=== PATIENT | male | born 1965 | race Caucasian/White ===

== ENCOUNTER 2018-06-15 10:18 | Emergency (ER) | payer SELFPAY ==
--- NOTE | 2018-06-15 11:22 | RAD REPORT ---
EXAM DESCRIPTION: CT - Stone Protocol - 06/15/2018 11:00 am CLINICAL HISTORY: Abdominal pain. Upper abdominal pain COMPARISON: None. TECHNIQUE: Computed axial tomography of the abdomen pelvis was obtained without oral or IV contrast. Lack of IV and oral contrast limits evaluation of solid organs, bowel, and vessels. Coronal reformat yvonne images were obtained and reviewed. All CT scans are performed using dose optimization technique as appropriate and may include automated exposure control or mA/KV adjustment according to patient size. FINDINGS: A renal calculus is not seen. An ureteral calculus is not noted. A bladder calculus is not present. 1 centimeter low-density area within the left kidney is nonspecific without IV contrast but probably represents a cyst. The liver, spleen, pancreas and adrenals appear grossly normal There is no evidence of diverticulitis. The appendix appears normal Small umbilical hernia. 6.5 centimeter lipoma is present within the left lateral abdominal wall. Small bilateral inguinal hernias contain fat Spondylolysis involves L5. L5-L1 disc is narrowed. Subchondral sclerosis involves the adjacent verteb ral endplates. IMPRESSION: Negative for a genitourinary calculus Disc space narrowing involving L5-S1 with subchondral sclerosis involving the vertebral endplates. Mo st likely this is all degenerative in nature. Inflammation/infection can also have this appearance. T his should be correlated clinically and with appropriate lab values.
[2018-06-15 11:27] LABS: Absolute Lymphocytes (CBC) 2.1 K/uL (0.7-4.9); Absolute Monocytes 0.7 K/uL (0.1-1.3); Basophils % 0.5 % (0-1.3); Eosinophils % 4.8 % (0-4.4); Hematocrit 41.7 % (39.6-49.0); Lymphocytes % 34.3 % (15.3-44.8); MCH 29.2 pg (27.0-35.0); MCV 85.3 fL (80-100); MPV 7.7 fL (7.6-11.3); RBC Red Blood Cell Count 4.89 M/uL (4.33-5.43)
[2018-06-15 11:43] LABS: Albumin 3.7 g/dL (3.4-5.0); Bilirubin Direct 0.2 mg/dL (0-0.2); Bilirubin Total 0.6 mg/dL (0.2-1.0); Protein, Total 7.6 g/dL (6.4-8.2)
[2018-06-15] MEDS ORDERED: NA CHLORIDE 0.9% 500 ML ONE (12:05)
[2018-06-15 12:19] LABS: Urine Blood 1+ (NEG); Urine Glucose NEGATIVE (NEG); Urine Protein NEGATIVE (NEG); Urine Specific Gravity >1.030 (1.005-1.030)
--- NOTE | 2018-06-15 12:42 | EDPHYS ---
Physician Documentation [facility] Name: Ed Staley II Age: 53 yrs Sex: Male : 1965 Arrival Date: 06/15/2018 Time: 10:21 Bed 25 Private MD: DEEJAY MOTA ED Physician Reece Yancey HPI: 06/15 10:40 This 53 yrs old Male presents to ER via Ambulatory with complaints of Urinary pam Problem. 10:40 The patient presents with abdominal pain in the upper abdomen, in the lower abdomen. pam Onset: The symptoms/episode began/occurred 1 day(s) ago. 10:40 The patient presents with urinary symptoms, hesitancy to initiate urine stream, unable pam to void. Onset: The symptoms/episode began/occurred 1 day(s) ago. Modifying factors: The symptoms are alleviated by nothing, the symptoms are aggravated by nothing. Associated signs and symptoms: The patient has no apparent associated signs or symptoms. The symptoms do not radiate. Historical: - Allergies: 10:30 Codeine; ph - Immunization history:: Adult Immunizations up to date. - Family history:: not pertinent. - Ebola Screening: : No symptoms or risks identified at this time. ROS: 10:40 Constitutional: Negative for fever, chills, and weight loss, Eyes: Negative for injury, pam pain, redness, and discharge, ENT: Negative for injury, pain, and discharge, Neck: Negative for injury, pain, and swelling, Cardiovascular: Negative for chest pain, palpitations, and edema, Respiratory: Negative for shortness of breath, cough, wheezing, and pleuritic chest pain, Back: Negative for injury and pain, MS/Extremity: Negative for injury and deformity, Skin: Negative for injury, rash, and discoloration, Neuro: Negative for headache, weakness, numbness, tingling, and seizure, Psych: Negative for depression, anxiety, suicide ideation, homicidal ideation, and hallucinations, Allergy/Immunology: Negative for hives, rash, and allergies, Endocrine: Negative for neck swelling, polydipsia, polyuria, polyphagia, and marked weight changes, Hematologic/Lymphatic: Negative for swollen nodes, abnormal bleeding, and unusual bruising. 10:40 Abdomen/GI: Positive for abdominal pain, of the right upper quadrant, left upper quadrant, right lower quadrant and left lower quadrant. 10:40 : Positive for urinary symptoms. Exam: 10:40 Constitutional: This is a well developed, well nourished patient who is awake, alert, pam and in no acute distress. Head/Face: Normocephalic, atraumatic. Eyes: Pupils equal round and reactive to light, extra-ocular motions intact. Lids and lashes normal. Conjunctiva and sclera are non-icteric and not injected. Cornea within normal limits. Periorbital areas with no swelling, redness, or edema. ENT: Nares patent. No nasal discharge, no septal abnormalities noted. Tympanic membranes are normal and external auditory canals are clear. Oropharynx with no redness, swelling, or masses, exudates, or evidence of obstruction, uvula midline. Mucous membranes moist. Neck: Trachea midline, no thyromegaly or masses palpated, and no cervical lymphadenopathy. Supple, full range of motion without nuchal rigidity, or vertebral point tenderness. No Meningismus. Chest/axilla: Normal chest wall appearance and motion. Nontender with no deformity. No lesions are appreciated. Cardiovascular: Regular rate and rhythm with a normal S1 and S2. No gallops, murmurs, or rubs. Normal PMI, no JVD. No pulse deficits. Respiratory: Lungs have equal breath sounds bilaterally, clear to auscultation and percussion. No rales, rhonchi or wheezes noted. No increased work of breathing, no retractions or nasal flaring. Abdomen/GI: Soft, non-tender, with normal bowel sounds. No distension or tympany. No guarding or rebound. No evidence of tenderness throughout. Back: No spinal tenderness. No costovertebral tenderness. Full range of motion. Skin: Warm, dry with normal turgor. Normal color with no rashes, no lesions, and no evidence of cellulitis. MS/ Extremity: Pulses equal, no cyanosis. Neurovascular intact. Full, normal range of motion. Neuro: Awake and alert, GCS 15, oriented to person, place, time, and situation. Cranial nerves II-XII grossly intact. Motor strength 5/5 in all extremities. Sensory grossly intact. Cerebellar exam normal. Normal gait. Psych: Awake, alert, with orientation to person, place and time. Behavior, mood, and affect are within normal limits. 10:40 : Male external genitalia: normal, Bladder: is normal. Vital Signs: 10:29 BP 134 / 77; Pulse 80; Resp 18; Temp 98.0; Pulse Ox 100% on R/A; Weight 112.49 kg; ph Height 6 ft. 0 in. (182.88 cm); Pain 08/12; 12:03 BP 112 / 72; Pulse 51; Resp 18; Pulse Ox 100% on R/A; aj1 13:12 BP 118 / 85; Pulse 62; Resp 18; Pulse Ox 97% on R/A; aj1 14:03 BP 112 / 81; Pulse 52; Resp 18; Pulse Ox 99% on R/A; aj1 10:29 Body Mass Index 33.63 (112.49 kg, 182.88 cm) ph MDM: 10:25 Patient medically screened. [facility] 10:42 Data reviewed: vital signs, nurses notes, lab test result(s), radiologic studies, CT pam scan. 06/15 10:39 Order name: Basic Metabolic Panel; Complete Time: 12:14 [facility] 06/15 10:39 Order name: CBC with Diff; Complete Time: 12:14 [facility] 06/15 10:39 Order name: Creatinine for Radiology; Complete Time: 12:35 [facility] 06/15 10:39 Order name: Hepatic Function; Complete Time: 12:14 [facility] 06/15 10:39 Order name: Lipase; Complete Time: 12:14 [facility] 06/15 10:39 Order name: Urine Culture [facility] 06/15 10:39 Order name: IV Saline Lock; Complete Time: 11:25 [facility] 06/15 10:39 Order name: Labs collected and sent; Complete Time: 11:25 [facility] 06/15 10:39 Order name: Urine Dipstick-Ancillary (obtain specimen); Complete Time: 11:22 [facility] 06/15 10:39 Order name: CT Stone Protocol; Complete Time: 12:14 [facility] 06/15 11:39 Order name: Urine Dipstick--Ancillary (enter results); Complete Time: 12:35 06/15 10:39 Order name: Bladder Scanner: pvr; Complete Time: 11:21 [facility] Administered Medications: 12:01 Drug: NS 0.9% 500 ml Route: IV; Rate: bolus; Site: left antecubital; aj1 14:04 Follow up: IV Status: Completed infusion; IV Intake: 500ml aj 13:04 Drug: Flomax 0.4 mg Route: PO; aj1 14:05 Follow up: Response: No adverse reaction aj1 13:11 Drug: Rocephin - (cefTRIAXone) 1 grams Route: IVPB; Infused Over: 30 mins; Site: left aj1 antecubital; 14:05 Follow up: Response: No adverse reaction; IV Status: Completed infusion aj1 Disposition: 06/15/18 12:41 Discharged to Home. Impression: Dysuria. - Condition is Stable. - Discharge Instructions: Dysuria. - Prescriptions for Flomax 0.4 mg Oral Capsule, Sust. Release 24 hr - take 1 capsule by ORAL route once daily 1/2 hour following the same meal each day; 30 capsule. Cipro 500 mg Oral Tablet - take 1 tablet by ORAL route every 12 hours for 7 days; 14 tablet. - Medication Reconciliation Form, Thank You Letter, Antibiotic Education, Prescription Opioid Use form. - Follow up: DEEJAY MOTA; When: 2 - 3 days; Reason: Recheck today's complaints, Continuance of care, Re-evaluation by your physician. Follow up: Nael Hunter MD; When: 2 - 3 days; Reason: Recheck today's complaints, Re-evaluation by your physician. - Problem is new. - Symptoms have improved. Signatures: Dispatcher [employer] EDSavannah Villareal RN RN aj1 Reece Yancey MD MD cha Hall, Patricia, RN RN ph Corrections: (The following items were deleted from the chart) 14:05 12:41 06/15/2018 12:41 Discharged to Home. Impression: Dysuria. Condition is Stable. aj1 Forms are Medication Reconciliation Form, Thank You Letter, Antibiotic Education, Prescription Opioid Use. Follow up: DEEJAY MOTA; When: 2 - 3 days; Reason: Recheck today's complaints, Continuance of care, Re-evaluation by your physician. Follow up: Nael Hunter; When: 2 - 3 days; Reason: Recheck today's complaints, Re-evaluation by your physician. Problem is new. Symptoms have improved. pam
--- NOTE | 2018-06-15 12:42 | ER ---
Nurse's Notes [facility] Name: Ed Staley II Age: 53 yrs Sex: Male : 1965 Arrival Date: 06/15/2018 Time: 10:21 Bed 25 Private MD: DEEJAY MOTA Diagnosis: Dysuria Presentation: 06/15 10:28 Presenting complaint: Patient states: Decreased urination since yesterday and ph discomfort in lower back, denies fever N/V?D. Transition of care: patient was not received from another setting of care. Onset of symptoms was June 15, 2018. Risk Assessment: Do you want to hurt yourself or someone else? Patient reports no desire to harm self or others. Initial Sepsis Screen: Does the patient meet any 2 criteria? No. Patient's initial sepsis screen is negative. Does the patient have a suspected source of infection? No. Patient's initial sepsis screen is negative. Care prior to arrival: None. 10:28 Method Of Arrival: Ambulatory ph 10:28 Acuity: STANISLAV 3 ph Historical: - Allergies: 10:30 Codeine; ph - Immunization history:: Adult Immunizations up to date. - Family history:: not pertinent. - Ebola Screening: : No symptoms or risks identified at this time. Screenin:35 Abuse screen: Denies threats or abuse. Denies injuries from another. Nutritional aj1 screening: No deficits noted. Tuberculosis screening: No symptoms or risk factors identified. 14:04 Fall Risk None identified. aj1 Assessment: 10:35 General: Appears in no apparent distress. comfortable, Behavior is calm, cooperative, aj1 appropriate for age. 10:35 Pain: Denies pain. Neuro: Level of Consciousness is awake, alert, obeys commands. aj1 Cardiovascular: Patient's skin is warm and dry. Respiratory: Airway is patent Respiratory effort is even, unlabored, Respiratory pattern is regular, symmetrical. GI: No signs and/or symptoms were reported involving the gastrointestinal system. : Reports that he has not been urinating as much as he usually does over the past 2-3 days. EENT: No signs and/or symptoms were reported regarding the EENT system. Derm: No signs and/or symptoms reported regarding the dermatologic system. Skin is pink, warm \T\ dry. normal. Musculoskeletal: No signs and/or symptoms reported regarding the musculoskeletal system. Circulation, motion, and sensation intact. 10:40 Reassessment: Patient voided 30cc of clear yellow urine, bladder scan performed and aj1 shows 31cc of fluid remaining in the bladder. 11:26 Reassessment: Patient appears in no apparent distress at this time. No changes from aj1 previously documented assessment. Patient and/or family updated on plan of care and expected duration. Pain level reassessed. Patient is alert, oriented x 3, equal unlabored respirations, skin warm/dry/pink. 12:03 Reassessment: Patient appears in no apparent distress at this time. No changes from aj1 previously documented assessment. Patient and/or family updated on plan of care and expected duration. Pain level reassessed. Patient is alert, oriented x 3, equal unlabored respirations, skin warm/dry/pink. Patient given warm blanket for comfort. 13:12 Reassessment: Patient appears in no apparent distress at this time. No changes from aj1 previously documented assessment. Patient and/or family updated on plan of care and expected duration. Pain level reassessed. Patient is alert, oriented x 3, equal unlabored respirations, skin warm/dry/pink. 14:03 Reassessment: Patient appears in no apparent distress at this time. No changes from aj1 previously documented assessment. Patient and/or family updated on plan of care and expected duration. Pain level reassessed. Patient is alert, oriented x 3, equal unlabored respirations, skin warm/dry/pink. Vital Signs: 10:29 BP 134 / 77; Pulse 80; Resp 18; Temp 98.0; Pulse Ox 100% on R/A; Weight 112.49 kg; ph Height 6 ft. 0 in. (182.88 cm); Pain 08/12; 12:03 BP 112 / 72; Pulse 51; Resp 18; Pulse Ox 100% on R/A; aj1 13:12 BP 118 / 85; Pulse 62; Resp 18; Pulse Ox 97% on R/A; aj1 14:03 BP 112 / 81; Pulse 52; Resp 18; Pulse Ox 99% on R/A; aj1 10:29 Body Mass Index 33.63 (112.49 kg, 182.88 cm) ph ED Course: 10:21 Patient arrived in ED. sb2 10:21 DEEJAY MOTA is Private Physician. sb2 10:25 Reece Yancey MD is Attending Physician. pam 10:29 Triage completed. ph 10:30 Arm band placed on Patient placed in an exam room. ph 10:35 No provider procedures requiring assistance completed. aj1 11:00 Pulse ox on. NIBP on. jp3 11:01 CT Stone Protocol In Process Unspecified. EDWI 11:15 Initial lab(s) drawn, by me, sent to lab. Inserted saline lock: 20 gauge in left 3 antecubital area, using aseptic technique. Blood collected. 11:19 Bed in low position. Call light in reach. Side rails up X 1. jp3 11:21 Savannah Gonzalez, RN is Primary Nurse. aj1 11:25 Lipase Sent. jp3 11:25 Hepatic Function Sent. jp3 11:25 Creatinine for Radiology Sent. jp3 11:25 CBC with Diff Sent. jp3 11:26 Basic Metabolic Panel Sent. jp3 12:39 DEEJAY MOTA is Referral Physician. [facility] 12:39 Nael Hunter MD is Referral Physician. pam 14:03 IV discontinued, intact, bleeding controlled, No redness/swelling at site. Pressure aj1 dressing applied. Administered Medications: 12:01 Drug: NS 0.9% 500 ml Route: IV; Rate: bolus; Site: left antecubital; aj1 14:04 Follow up: IV Status: Completed infusion; IV Intake: 500ml aj1 13:04 Drug: Flomax 0.4 mg Route: PO; aj1 14:05 Follow up: Response: No adverse reaction aj1 13:11 Drug: Rocephin - (cefTRIAXone) 1 grams Route: IVPB; Infused Over: 30 mins; Site: left aj1 antecubital; 14:05 Follow up: Response: No adverse reaction; IV Status: Completed infusion aj1 Intake: 14:04 IV: 500ml; Total: 500ml. aj1 Outcome: 12:41 Discharge ordered by . pam 14:04 Discharged to home ambulatory. aj1 14:04 Condition: good 14:04 Discharge instructions given to patient, Instructed on discharge instructions, follow up and referral plans. medication usage, Demonstrated understanding of instructions, follow-up care, medications, Prescriptions given X 2. 14:05 Patient left the ED. aj1 Signatures: Dispatcher [employer] [facility] Savannah Gonzalez, RN RN aj1 Reece Yancey MD MD cha Hall, Patricia RN RN ph Inna Spear sb2 Gibson Turner jp3
[2018-06-15] MEDS ORDERED: TAMSULOSIN 0.4 MG SR CAP ONE (13:01)
[2018-06-15] MEDS ORDERED: CEFTRIAXONE/SWI 1gm 1 GM/10 ML SYR ONE (13:02)
== END 2018-06-15 14:05 | disposition home or self-care (01) ==
LOC: ER 10:18
DX: R30.0 Dysuria (principal); Z88.5 Allergy status to narcotic agent
CPT/HCPCS: 36415; 74176; 76377; 80048; 80076; 81003; 83690; 85025; 87086; 87088; 96361; 96365; 99284; J0696

== ENCOUNTER 2025-06-02 15:14 | Emergency (ER) | payer OTHER, SELFPAY ==
[2025-06-02] MEDS ORDERED: IPRATROPIUM BROM 0.5MG/2.5ML ONE ×2 (15:28→16:53)
[2025-06-02] MEDS ORDERED: ALBUTEROL 2.5 MG/3 ML NEB SOL ONE ×2 (15:28→16:53)
[2025-06-02 15:37] LABS: Absolute Lymphocytes (CBC) 1.0 K/uL (0.7-4.9); Hematocrit 46.0 % (39.6-49.0); Hemoglobin 15.4 g/dL (13.6-17.9); MCH 28.7 pg (27.0-35.0); MCHC 33.5 g/dL (32.0-36.0); MCV 85.5 fL (80-100); MPV 7.4 fL (7.6-11.3); Nucleated RBC Absolute Count 0.0 (0-0); Nucleated Red Blood Cells % 0.0 % (0-0); RBC Red Blood Cell Count 5.38 M/uL (4.33-5.43); White Blood Count 11.30 thou/uL (4.3-10.9)
[2025-06-02 15:43] LABS: PT Prothrombin Time 12.1 SECONDS (10-13.0); Protime INR 1.07
[2025-06-02 15:56] LABS: Anion Gap 9.1 mEq/L (5.0-15.0); BUN Blood Urea Nitrogen 13.0 mg/dL (7-18); Glucose Level 108.0 mg/dL (74-106); NT PRO-BNP 109.0 pg/mL (<125); Potassium 4.1 mEq/L (3.5-5.1); Troponin High Sensitivity 30.5 pg/mL (<58.9)
--- NOTE | 2025-06-02 16:57 | RAD REPORT ---
EXAMINATION: ONE VIEW CHEST XR CLINICAL INDICATION: Male, 59 years old.,SOB TECHNIQUE: Frontal chest projection is submitted. Examination is limited by patient positioning and t echnique. COMPARISON: No prior exam. FINDINGS: The lungs are well inflated and clear. No pneumothorax or sizable effusion. The heart is normal in s ize. Mediastinal contours are unremarkable. IMPRESSION: No acute intrathoracic abnormalities.
--- NOTE | 2025-06-02 17:01 | ER ---
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 PT REPORTS THIS HAPPENED IN THE PAST. DENIES FEVER OR COUGH. Coronavirus screen: difficulty breathing, shortness of breath. Ebola Screen: No symptoms or risks identified at this time. Initial Sepsis Screen: Does the patient meet any 2 criteria? No. Patient's initial sepsis screen is negative. Does the patient have a suspected source of infection? No. Patient's initial sepsis screen is negative. Risk Assessment: Do you want to hurt yourself or someone else? Patient reports no desire to harm self or others. Onset of symptoms was June 02, 2025. 15:28 Method Of Arrival: Wheelchair dd2 15:28 Acuity: STANISLAV 2 dd2 Triage Assessment: 15:28 General: Appears distressed, Behavior is cooperative, appropriate for age, anxious. dd2 Pain: Denies pain. Respiratory: Reports shortness of breath at rest on exertion labored breathing Airway is patent Respiratory effort is labored, with retractions, using tripod position, Respiratory pattern is regular, symmetrical, tachypnea Onset: The symptoms/episode began/occurred today. Historical: - Allergies: 15:29 Codeine; ll1 - PMHx: 15:29 Asthma; pituatory adenoma; ll1 - PSHx: 15:29 brain surgery; ll1 - Immunization history:: Adult Immunizations up to date. - Infectious Disease History:: Denies. - Social history:: Smoking status: unknown. Screenin:56 [facility] ED Fall Risk Assessment (Adult) History of falling in the last 3 months, kb4 including since admission No falls in past 3 months (0 pts) Confusion or Disorientation No (0 pts) Intoxicated or Sedated No (0 pts) Impaired Gait No (0 pts) Mobility Assist Device Used No (0 pt) Altered Elimination No (0 pt) Score/Fall Risk Level 0 - 2 = Low Risk. Abuse screen: Denies threats or abuse. Denies injuries from another. Nutritional screening: No deficits noted. Tuberculosis screening: No symptoms or risk factors identified. Assessment: 15:35 Respiratory: Airway is patent Respiratory effort is even, labored, using tripod kb4 position, Respiratory pattern is tachypnea. 15:53 Reassessment: pt refused EKG pt stated "i do not want to pay for that". General: kb4 Appears in no apparent distress. uncomfortable, Behavior is calm, cooperative. Neuro: Level of Consciousness is awake, alert, obeys commands, Oriented to person, place, time, situation. Cardiovascular: Patient's skin is warm and dry. Respiratory: Airway is patent Respiratory effort is even, unlabored, Respiratory pattern is regular, symmetrical. Derm: Skin is pink, warm \\T\\ dry. 16:55 Reassessment: Patient and/or family updated on plan of care and expected duration. Pain kb4 level reassessed. Patient is alert, oriented x 3, equal unlabored respirations, skin warm/dry/pink. Patient states symptoms have improved. 17:12 Reassessment: Patient states feeling better. Patient states symptoms have improved. kb4 Vital Signs: 15:23 Pulse 112; Resp 28; Pulse Ox 88% ; dr5 15:28 BP 156 / 106; Pulse 102; Resp 26; Temp 98.4(A); Pulse Ox 88% on R/A; Weight 95.25 kg; dd2 Height 6 ft. 1 in. ; 15:44 Pulse Ox 98% on Nebulizer Mask; ll1 16:55 BP 106 / 73; Pulse 88; Resp 16; Pulse Ox 99% on R/A; kb4 15:28 Body Mass Index 27.71 (95.25 kg, 185.42 cm) dd2 ED Course: 15:17 Patient arrived in ED. gm2 15:18 [facility] 15:18 Tomás Ojeda MD is Attending Physician. dr5 15:25 Inserted saline lock: 22 gauge in left antecubital area, using aseptic technique. Blood kb4 collected. Flushed with 10 mL NS. 15:27 Ayah Carrillo, RN is Primary Nurse. kb4 15:29 Arm band placed on Patient placed in an exam room, on a stretcher. ll1 15:30 Triage completed. dd2 15:56 Patient has correct armband on for positive identification. Call light in reach. kb4 15:56 No provider procedures requiring assistance completed. kb4 16:21 XRAY Chest (1 view) In Process Unspecified. EDMS 17:12 IV discontinued, intact, bleeding controlled, No redness/swelling at site. Pressure kb4 dressing applied. 17:13 Provided Education on: med use. kb4 Administered Medications: 15:30 Drug: DuoNeb Nebulize (3:1) (2.5 mg - 0.5 mg) 6 ml Nebulizer once Route: Nebulizer; dr5 16:55 Follow up: Response: No adverse reaction kb4 15:41 Drug: Dexamethasone IVP 10 mg IVP once; (not to exceed 40 mg) Route: IVP; Site: left kb4 antecubital; 16:55 Follow up: Response: No adverse reaction kb4 16:55 Drug: DuoNeb Nebulize (3:1) (2.5 mg - 0.5 mg) 3 ml Nebulizer once Route: Nebulizer; kb4 17:13 Follow up: Response: No adverse reaction kb4 Medication: 16:55 VIS not applicable for this client. kb4 Outcome: 17:01 Discharge ordered by MD. dr5 17:12 Discharged to home ambulatory, kb4 17:12 Condition: good 17:12 Discharge instructions given to patient, Instructed on discharge instructions, follow up and referral plans. medication usage, Demonstrated understanding of instructions, follow-up care, medications, Prescriptions given X 3, 17:13 Patient left the ED. kb4 Signatures: Dispatcher [employer] EDMS Kaya Cordero, RN RN [id number] Erica Ruth 2 LUANNE WARD RN RN dd2 Edgar Calderón, EVENTS ADMINISTRATIVE ASSISTANT-C EVENTS ADMINISTRATIVE ASSISTANT-Cdr5 Ayah Carrillo RN RN kb4
--- NOTE | 2025-06-02 17:01 | EDPHYS ---
Physician Documentation [facility] Name: Ed Staley II Age: 59 yrs Sex: Male : 1965 Arrival Date: 06/02/2025 Time: 15:14 Bed 6 Private MD: ED Physician Tomás Ojeda HPI: 06/02 15:24 This 59 yrs old Male presents to ER via Ambulatory with complaints of Asthma dr5 Exacerbation. 15:25 Patient is a 59-year-old male with history of asthma and daily smoker coming in with dr5 shortness of breath that started 3 hours ago. Patient reports he has not had a asthma attack in years. Patient reports waking up this morning without any symptoms and slowly became more short of breath. No medication or inhalers given prior to arrival. Upon entering triage room, patient is standing up and hunched over desk. Patient placed on oxygen and brought to room to have a breathing treatment started.. Historical: - Allergies: 15:29 Codeine; ll1 - PMHx: 15:29 Asthma; pituatory adenoma; ll1 - PSHx: 15:29 brain surgery; ll1 - Immunization history:: Adult Immunizations up to date. - Infectious Disease History:: Denies. - Social history:: Smoking status: unknown. ROS: 15:25 Constitutional: as per hpi dr5 Exam: 17:03 Constitutional: This is a well developed, well nourished patient who is awake, alert, dr5 and in no acute distress. Vital Signs: 15:23 Pulse 112; Resp 28; Pulse Ox 88% ; dr5 15:28 BP 156 / 106; Pulse 102; Resp 26; Temp 98.4(A); Pulse Ox 88% on R/A; Weight 95.25 kg; dd2 Height 6 ft. 1 in. ; 15:44 Pulse Ox 98% on Nebulizer Mask; ll1 16:55 BP 106 / 73; Pulse 88; Resp 16; Pulse Ox 99% on R/A; kb4 15:28 Body Mass Index 27.71 (95.25 kg, 185.42 cm) dd2 MDM: 15:19 Medical Screening Exam initiated dr5 15:31 ED course: I started breathing treatment at 3:30 PM.. dr5 17:02 Differential diagnosis: acute asthma, URI, Pneumonia. Antibiotic administration: The dr5 patient is discharged and will get outpatient antibiotics, Zithromax. Data reviewed: vital signs, nurses notes, lab test result(s), cardiac enzymes, troponin i, CBC, white blood cell count, hemoglobin, hematocrit, platelets, electrolytes, sodium, potassium, chloride, serum bicarbonate, BUN, creatinine, serum glucose, radiologic studies, plain films. Consideration of Admission/Observation Escalation of care including admission/observation considered. Escalation considered patient did not feel better after breathing treatments. I considered the following discharge prescriptions or medication management in the emergency department I discussed and recommended Over The Counter medications, Medications were administered in the Emergency Department. See MAR. Independent interpretation of the following test(s) in the Emergency Department X-Ray: My interpretation is Independent interpretation of x-ray does not reveal infiltrates concerning for pneumonia. Historians other than the Patient: Parent: Father. Care significantly affected by the following chronic conditions: Pituitary adenoma, asthma. Care significantly affected by the following Social Determinants of Health: Poor access to healthcare and/or lack of insurance, Poor access to transportation, Problems related to employment. Counseling: I had a detailed discussion with the patient and/or guardian regarding the historical points, exam findings, and any diagnostic results supporting the discharge/admit diagnosis, the presence of at least one elevated blood pressure reading (>120/80) during this emergency department visit, lab results, radiology results, the need for outpatient follow up, for definitive care, a family practitioner, a pasta maker, to return to the emergency department if symptoms worsen or persist or if there are any questions or concerns that arise at home. Medication response: Response to treatment: the patient's symptoms have markedly improved after treatment. Special discussion: I discussed with the patient/guardian in detail that at this point there is no indication for admission to the hospital. It is understood, however, that if the symptoms persist or worsen the patient needs to return immediately for re-evaluation. Based on the history and exam findings, there is no indication for further emergent testing or inpatient evaluation. I discussed with the patient/guardian the need to see the primary care provider for further evaluation of the symptoms. ED course: Patient reports feeling much better after breathing treatments and steroids. Will have patient follow-up primary care doctor. Will send patient home with albuterol inhaler, steroid Dosepak, and antibiotics. All question answered. Strict ER precautions given. 06/02 15:23 Order name: Basic Metabolic Panel; Complete Time: 15:57 [facility] 06/02 15:23 Order name: CBC with Diff; Complete Time: 16:01 [facility] 06/02 15:23 Order name: NT PRO-BNP; Complete Time: 15:57 [facility] 06/02 15:23 Order name: PT-INR; Complete Time: 15:50 [facility] 06/02 15:23 Order name: Troponin HS; Complete Time: 15:57 [facility] 06/02 15:23 Order name: XRAY Chest (1 view); Complete Time: 17:01 [facility] 06/02 15:23 Order name: EKG; Complete Time: 15:24 [facility] 06/02 15:23 Order name: IV Saline Lock; Complete Time: 15:41 [facility] 06/02 15:23 Order name: Labs collected and sent; Complete Time: 15:41 [facility] 06/02 15:23 Order name: O2 Per Protocol; Complete Time: 15:41 [facility] 06/02 15:23 Order name: O2 Sat Monitoring; Complete Time: 15:41 dr5 Administered Medications: 15:30 Drug: DuoNeb Nebulize (3:1) (2.5 mg - 0.5 mg) 6 ml Nebulizer once Route: Nebulizer; dr5 16:55 Follow up: Response: No adverse reaction kb4 15:41 Drug: Dexamethasone IVP 10 mg IVP once; (not to exceed 40 mg) Route: IVP; Site: left kb4 antecubital; 16:55 Follow up: Response: No adverse reaction kb4 16:55 Drug: DuoNeb Nebulize (3:1) (2.5 mg - 0.5 mg) 3 ml Nebulizer once Route: Nebulizer; 4 17:13 Follow up: Response: No adverse reaction kb4 Disposition: 18:39 Co-signature as Attending Physician, Tomás Ojeda MD I reviewed the patient's care rn provided by the Advanced Practice Provider and agree with the diagnosis and treatment plan. 19:03 Critical Care:. dr5 Disposition Summary: 06/02/25 17:01 Discharge Ordered Notes: Location: Home dr5 Condition: Stable dr5 Diagnosis - Unspecified asthma, uncomplicated dr5 Followup: dr5 - With: Emergency Department - When: As needed - Reason: Worsening of condition Followup: dr5 - With: Private Physician - When: 1 - 2 days - Reason: Recheck today's complaints, Continuance of care, Re-evaluation by your physician Discharge Instructions: - Discharge Summary Sheet dr5 - Asthma, Adult dr5 Forms: - Medication Reconciliation Form dr5 - Antibiotic Education dr5 - Patient Portal Instructions dr5 - Leadership Thank You Letter dr5 Prescriptions: - albuterol sulfate 90 mcg/actuation Inhalation Aerosol Powder, Breath Activated - administer 2 inhalation INHALATION route 4 times per day As needed; 1 dr5 application; Refills: 0, Product Selection Permitted - Zithromax Z-Ryne 250 mg Oral Tablet - take 1 tablet ORAL route as directed for 5 days Day 1 - take two (2) tablets dr5 one time. Day 2, 3, 4 , 5 take one (1) tablet once daily.; 6 tablet; Refills: 0, Product Selection Permitted - Medrol (Ryne) 4 mg Oral Tablets, Dose Pack - take 1 tablet ORAL route as directed - follow package instructions; 1 packet; dr5 Refills: 0, Product Selection Permitted Critical care time excluding procedures: 19:03 Critical care time: Bedside Care: 25 minutes, Consultation: 5 minutes. Total time: 30 dr5 minutes Signatures: Dispatcher [employer] EDTomás Reyna MD MD rn Lewis, Lynsay RN RN ll1 Edgar Calderón, [employer] SUPERVISOR-C [employer] SUPERVISOR-Cdr5 Ayah Carrillo RN RN kb4 Corrections: (The following items were deleted from the chart) 16:57 15:23 Cardiac monitoring ordered. dr5 aa5 16:57 15:23 EKG - Nurse/Tech ordered. dr5 aa5
[2025-06-02 17:18] VITALS: TEMP 98.4
[2025-06-02 17:20] VITALS: BP 106/73; O2SAT 99
== END 2025-06-02 17:13 | disposition home or self-care (01) ==
LOC: ER 15:14
DX: J45.909 Unspecified asthma, uncomplicated (principal); F17.210 Nicotine dependence, cigarettes, uncomplicated
CPT/HCPCS: 36415; 71045; 80048; 83880; 84484; 85025; 85610; 96374; 99285; J1100; J7613; J7644